=== PATIENT | male | born 1940 | race Asian ===

== ENCOUNTER → 2020-10-22 13:37 | Outpatient (CLI) | payer MEDICARE, SELFPAY ==
--- NOTE | 2020-10-22 | DI.ECHO.S_ITS ---
[facility]---------+ [facility] +---------+ : : [address] : : : : [id number] : : : : Phone: [phone]+ Echocardiogram Report + + :Name: NIECY MENDOZA Study Date: 10/22/2020 Height: 64 in : :[facility] ReadingLocation: Weight: 130 lb : : Gender: Male BSA: 1.6 m2 : :: 1940 Age: 80 yrs BP: 125/71 mmHg: :Reason For Study: HYPERTENSION : :Ordering Physician: JEET, : :NADEEM Performed By: Leonor Camacho : :Referring: NADEEM MARCANO : + + Interpretation Summary The ejection fraction is estimated to be 60-65%. There is no significant valvular heart disease. Procedure: A two-dimensional transthoracic echocardiogram with color flow and Doppler was performed. The study quality was technically adequate. There is no prior echocardiogram noted for this patient. The patient was in sinus rhythm with heart rates between 75-88 bpm during the exam. Left Ventricle: The left ventricle is normal in size and wall thickness. The ejection fraction is estimated to be 60-65%. Left ventricular wall motion is normal. Right Ventricle: The right ventricle grossly appears normal in size with probable normal systolic function. Atria: Both atria are normal in size. There is no Doppler evidence for an interatrial shunt. Mitral Valve: The mitral valve is normal in structure and function. There is no mitral regurgitation noted. Aortic Valve: The aortic valve is not well visualized. The aortic valve is grossly normal. The aortic valve opens well. There is no aortic valve stenosis. No aortic regurgitation is present. Tricuspid Valve: The tricuspid valve is normal in structure and function. There is trace tricuspid regurgitation. Pulmonary artery pressures cannot be estimated because of the lack of a measurable TR jet velocity but the IVC suggests a CVP of around 3 mmHg. Pulmonic Valve: The pulmonic valve is not well seen, but is grossly normal. There is trace pulmonic regurgitation. Great Vessels: The aortic root is normal size. The ascending aorta is mildly enlarged. The IVC is of normal diameter and collapses greater than 50% with a sniff. This suggests a low right atrial pressure of 3 mm Hg. Pericardium/ Pleura There is no pericardial effusion. There is no pleural effusion. MMode/2D Measurements & Calculations LVIDd: 4.4 cm LVOT diam: 1.9 cm LVIDs: 3.0 cm Ao root diam: 3.6 cm FS: 32.8 % asc Aorta Diam: 3.4 cm IVSd: 0.77 cm Ao Arch Diam (Prox Trans): 2.4 cm LVPWd: 0.72 cm LV levy. diameter/BSA (cm/m^2): 2.7 LV sys. diameter/BSA (cm/m^2): 1.8 LA A2 area: 14.9 cm2 RA long axis: 3.8 cm LA A4 area: 12.5 cm2 RA area: 11.2 cm2 LA length (vol): 4.1 cm RA vol: 27.8 ml LA vol: 38.8 ml RA : 17.1 ml/m2 LA vol index: 23.8 ml/m2 IVC diam: 1.0 cm RVD1 (basal): 2.5 cm TAPSE: 1.7 cm Doppler Measurements & Calculations Ao V2 max: 118.7 cm/sec LVOT Max Ruben: 81.5 cm/sec Ao V2 mean: 85.3 cm/sec LV V1 max P.7 mmHg Ao max P.6 mmHg LV V1 VTI: 16.9 cm Ao mean P.2 mmHg UGO(I,D): 2.2 cm2 Ao V2 VTI: 22.4 cm UGO(V,D): 2.0 cm2 sev ratio: 0.75 UGO indexed to BSA (cm^2/m^2): 1.3 MV E max ruben: 64.9 cm/sec PA V2 max: 81.7 cm/sec MV A max ruben: 99.6 cm/sec PA V2 mean: 57.5 cm/sec MV E/A: 0.65 PA mean P.5 mmHg Med Peak E' Ruben: 6.9 cm/sec PA pr(Accel): 27.6 mmHg E/E' med: 9.3 Lat Peak E' Ruben: 6.2 cm/sec E/E' lat: 10.4 E/e' average: 9.9 MV dec time: 0.27 sec SV(LVOT): 48.5 ml Reading Physician:04:17 PM
== END ==
PROVIDERS: Referring Provider Internal Medicine; Visit Provider Internal Medicine
DX: I77.89 Other specified disorders of arteries and arterioles (principal); I10 Essential (primary) hypertension
CPT/HCPCS: 93306

== ENCOUNTER → 2021-04-26 12:34 | Outpatient (CLI) | payer MEDICARE, SELFPAY ==
--- NOTE | 2021-04-26 | DI.CT.S_ITS ---
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 COMPARISON: None. FINDINGS: Image quality: Excellent. Bones: Right hip arthroplasty is seen in situ. Eccentric lucency about the femoral component measuring up to 2.7 mm with close approximation of the stem to the cortex, concerning for lucency. The remaining visualized osseous structures appear maintained. Soft tissues: No significant soft tissue abnormality. Large right scrotal hydrocele. Prostatomegaly. IMPRESSION: 1. 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 2. Right scrotal hydrocele. Dictated by: Eder Francois M.D. on 04/26/2021 at 13:41 Approved by: Eder Francois M.D. on 04/26/2021 at 13:52
== END ==
PROVIDERS: Referring Provider Internal Medicine; Visit Provider Internal Medicine
DX: Z96.641 Presence of right artificial hip joint (principal); Z09 Encounter for follow-up examination after completed treatment for conditions other than malignant neoplasm; N43.3 Hydrocele, unspecified
CPT/HCPCS: 72192